=== PATIENT | male | born 1945 | race Caucasian/White ===

== ENCOUNTER → 2024-10-20 11:26 | Outpatient (REF) | payer OTHER, MEDICARE, SELFPAY | LOC: RAD 11:26 | PROVIDERS: ATTENDING PHYSICIAN Family Medicine | DX: R05.1 Acute cough (principal); R06.2 Wheezing | CPT/HCPCS: 71046 ==

== ENCOUNTER → 2025-01-17 08:20 | Outpatient (REF) | payer OTHER, MEDICARE, SELFPAY | LOC: RAD 08:20 | PROVIDERS: ATTENDING PHYSICIAN Physician Assistant Medical; FAMILY PHYSICIAN Family Medicine | DX: M45.1 Ankylosing spondylitis of occipito-atlanto-axial region (principal) | CPT/HCPCS: 72110; 73502 ==

== ENCOUNTER → 2025-03-10 07:32 | Outpatient (REF) | payer OTHER, SELFPAY | LOC: RAD 07:32 | PROVIDERS: ATTENDING PHYSICIAN Nurse Practitioner Family; FAMILY PHYSICIAN Family Medicine | DX: J84.9 Interstitial pulmonary disease, unspecified (principal); R59.0 Localized enlarged lymph nodes | CPT/HCPCS: 71260; Q9967 ==